=== PATIENT | male | born 1955 | race Caucasian/White ===

== ENCOUNTER 2016-06-05 10:55 | Inpatient (IN) | payer OTHER ==
[~2016-06-05] VITALS: Ht 180.3 cm; Wt 94.8 kg
--- NOTE | ~2016-06-05 | HC ---
[facility] [place] [address] [place] [address] CONSULTATION Name: JET MONTALVO Room #: 201-P [facility] IN M.R.#: [id number] Admission: 06/05/16 Attend Phys: Leland Barrett MD, [facility] Dis[facility]: Date of : 55 Report #: [id number] THIS REPORT FOR: //name// CC: Leland Ragland MD DATE OF SERVICE: 06/05/2016 The patient was admitted through the hospitalist after being seen in Dr. Ragland's office. HISTORY OF PRESENT ILLNESS: The patient states he has been having chest pain, cough and shortness of breath for about one year now. It has been drastically increased after he fell two months ago. The patient had been following up a chest x-ray which was done, I believe on the and following up in Dr. Ragland's office. The patient was then admitted through the hospitalist at [facility] for chest pain, cough, shortness of breath and pleural effusion with loculation. PAST MEDICAL HISTORY: COPD, basal cell carcinoma ear and forehead. PAST SURGICAL HISTORY: Arthroscopic knee bilaterally twice on the right. Previously has had lumbar fusion L3 through S1 and basal cell cancer removal. SOCIAL HISTORY: The patient is single, lives with his girlfriend, does have 3 children. He smokes a pack a day x 40 years, he quit 1 month ago and does not drink alcohol, denies any use of illicit drugs. FAMILY HISTORY: Mother is alive and 88 years old with a history of coronary artery disease and diabetes. Father is in his 70s of lung cancer and prostatic cancer. ALLERGIES: No known drug allergies. HOME MEDICATIONS: Prednisone, meloxicam, albuterol, guaifenesin and codeine. REVIEW OF SYSTEMS: A 12-point review of systems completed. GENERAL: The patient denies any fatigue, does have some difficulty sleeping secondary to frequent cough. HEENT: Denies any headache, vertigo or hearing loss. RESPIRATORY: Does complain of shortness of breath, dyspnea on exertion, orthopnea. Denies wheeze. Does complain of frequent cough producing phlegm. CARDIOVASCULAR: Denies chest pain, jaw pain, arm pain or murmur. INTEGUMENTARY: Denies rashes, psoriasis or eczema. [address] [address] CONSULTATION Name: JET MONTALVO Mikki Room #: 201-P [facility] IN .R.#: [id number] Admission: 06/05/16 Attend Phys: Leland Barrett MD, FAAF Discharge: Date of : 55 Report #: [id number] ENDOCRINE: Denies cold feet, he said he has night sweats. Denies any lack of concentration. GASTROINTESTINAL: Denies nausea, vomiting, diarrhea or constipation. GENITOURINARY: Denies any urinary frequency, hematuria or dysuria. NEUROLOGIC: Denies any seizures or neuropathy. PSYCHIATRIC: Denies any hallucination, depression or anxiety MUSCULOSKELETAL: Denies any swelling or stiffness. He does complain of some joint pain, bilateral knees when ambulating up and down stairs. Denies any leg claudication, IMMUNOLOGIC: Denies any lupus, rheumatoid arthritis or celiac disease. PHYSICAL EXAMINATION: VITAL SIGNS: Blood pressure is 150/97, pulse of 100, respirations 16, temperature is 36.8, O2 sat of 94% on room air. GENERAL: Well-developed, well-nourished, has normal speech and mentation. HEENT: Eyes are PERRLA. He is normocephalic. Gaze appearing conjugate in all positions. No evidence of nystagmus. CARDIOVASCULAR: Shows regular rate and rhythm, S1, S2, without murmur, gallops or thrills. No carotid bruits noted. LUNGS: Show decreased lung sounds to right upper and lower lobes. Left lung upper and lower lobes show fine crackles, did not note any wheezes or stridor. ABDOMEN: Soft, nontender. Bowel sounds are present in all 4 quadrants. SKIN: Shows normal color. Normal turgor. MUSCULOSKELETAL: A 5/5 strength in all muscle groups in upper and lower extremities. NEUROLOGIC: Cranial nerves 2-12 are examined and intact. The patient is alert and oriented x 3. LABORATORY DATA: Sodium is 134, potassium is 4.0, chloride is 100, CO2 is 23, BUN is 9, creatinine is 0.8. White blood cells 10.5, hemoglobin is 13.9, hematocrit is 41.0 and platelets are 291. CT scan done shows loculated effusion to the right chest wall. ASSESSMENT: 1. Right-sided loculated pleural effusion. 2. Chronic obstructive pulmonary disease. 3. Tobacco abuse. PLAN: We will order preoperative EKG, CBC, type and screen, n.p.o. midnight and a consent form for tomorrow's bronchoscopy, right video-assisted thoracoscopy with possible right thoracotomy and decortication. <ELECTRONICALLY SIGNED> By: CHACORTA Perla 06/15/16 1423 1607 39 CHACORTA Perla /nt
--- NOTE | ~2016-06-05 | O ---
[facility] [place] [address] OPERATIVE REPORT Name: JET MONTALVO Mikki Room #: 201-P [facility] IN M.R.#: [id number] Admission: 06/05/16 Attend Phys: Leland Barrett MD, [facility] Discharge: 06/15/16 Date of : 55 Report #: [id number] THIS REPORT FOR: //name// CC: Leland Barrett Jenaro Pablo Barraza DATE OF SERVICE: 06/07/2016 PREOPERATIVE DIAGNOSIS: Empyema, right side. POSTOPERATIVE DIAGNOSIS: Loculated right pleural effusion with fibrothorax/empyema. OPERATION: Bronchoscopy, right thoracotomy with decortication. SURGEON: Rory Covarrubias MD ANESTHESIA: General. INDICATIONS: The patient is a 60-year-old with a loculated pleural effusion. The patient presents with progressive debilitation, shortness of breath and severe cough. Chest x-ray and CT scan showed the loculated effusion and trapped lung. FINDINGS AND TECHNIQUE: After general anesthesia was established, flexible diagnostic bronchoscopy was performed. There were some secretion seen in the right lower lobe, but no endobronchial lesions were noted. Double lumen endotracheal tube was placed and the patient was positioned with right side up. Exposure was obtained through typical video-assisted thoracoscopy ports, but it was clear that the lung was trapped and that more aggressive approach would be needed, therefore exposure was brought into a posterolateral thoracotomy and the chest was entered through appropriate interspace. The loculated effusion was drained, but the lung was covered by a thick peel that prevented reexpansion. This peel was removed with combination of sharp and blunt dissection. This was a tedious dissection as this was a very tenacious layer. Nevertheless, there was a plane between the peel and lung and we were able to decorticate the right upper and middle and lower lobes. When the decortication was felt to be optimal, chest was irrigated with copious amounts of warm saline and then 4 chest tubes were placed to drain the anterior, lateral, posterior, and inferior pleural surfaces. Chest was then closed in the [facility] [address] [place] [address] OPERATIVE REPORT Name: JET MONTALVO Room #: 201-P [facility] IN M.R.#: [id number] Admission: 06/05/16 Attend Phys: Leland Barrett MD, FAAF Discharge: 06/15/16 Date of : 55 Report #: [id number] usual fashion. The patient was taken to the recovery area in good condition having tolerated the procedure well. <ELECTRONICALLY SIGNED> By: Rory Covarrubias MD 06/28/162009 1620 1703 Rory Covarrubias MD /nt
--- NOTE | ~2016-06-05 | EKG ---
[address] [place] [address] ELECTROCARDIOGRAM REPORT Name: KATIAJET Kaye Room #: 242-P [facility] IN M.R.#: [id number] Admission: 06/05/16 Attend Phys: Leland Barrett MD, FAAF Discharge: Date of : 55 Report #: [id number] THIS REPORT FOR: //name// [facility] Test Date: 2016-06-06 Test Time: 16:18:45 Pat Name: JET MONTALVO Department: Room: [facility] Gender: M Psychodramatist: Cristina CHACON : 1955 Requested By: Vadim Irby Order Number: [id number] MD: Ethan Lindsay Measurements Intervals Nelson Rate: 102 P: 67 OK: 219 QRS: 46 QRSD: 98 T: 72 QT: 337 QTc: 439 Interpretive Statements Sinus tachycardia Prolonged OK interval No previous ECG available for comparison Electronically Signed On 06-07-2016 17:47:41 BUILDING PRINCIPAL by Ethan Lindsay [email or web address] <ELECTRONICALLY SIGNED> By: Ethan Lindsay MD, [facility] 06/07/16 1747 1618 1618 Ethan Lindsay MD, FACC /EPI
--- NOTE | ~2016-06-05 | CNG ---
[facility] [address] [place] [address] CYTO-NONGYN REPORT PROCEDURE Name: ABRAHAM MONTALVO Room #: 308-P ADM IN M.R.#: [id number] Admission: 06/05/16 Date of : 55 Discharge: Report #: [id number] Path Case #: [id number] CYTOPATHOLOGY REPORT COLLECTION DATE: 06/05/2016 RECEIVED DATE: 06/05/2016 SUBMITTING PHYS: Dr. Quincy Ragland OTHER PHYS: Dr. Jenaro Barraza CLINICAL HISTORY: Pleural effusion. SPECIMEN(S) RECEIVED: A.Pleural fluid * * * * * * * * * * * * FINAL DIAGNOSIS: A. Pleural fluid: - No malignant cells identified. Paucicellular specimen with rare mesothelial cells and scattered inflammatory cells, including occasional eosinophils, present in a background of amorphous and fibrin debris. COMMENT: The inflammatory cells and fibrin debris may be a component of blood and peripheral blood elements. Clinical and radiographic correlation is recommended. (CLW; 06/06/16) PATHOLOGIST: Olivia Vaz M.D. REPORT ELECTRONICALLY SIGNED BY: Olivia Vaz M.D. DATE/TIME: 06/06/2016 12:05 * * * * * * * * * * * * GROSS PATHOLOGY: A. Pleural fluid: The specimen is submitted unfixed, labeled "Abraham Montalvo". Received by the Cytology Department is 15 mL of cloudy red fluid. One ThinPrep slide and a cell block were prepared. (clt 2.20.2017) CORD TIRE BUILDER(S): CRYS Mejia(ASCP)IAC INITIAL CPT CODE(S): A; 77113, 40566 [facility] [address], [place] [address] [facility] [address] [place] [address] CYTO-NONGYN REPORT PROCEDURE Name: ABRAHAM MONTALVO Room #: 308-P ADM IN M.R.#: [id number] Admission: 06/05/16 Date of : 55 Discharge: Report #: [id number] Path Case #: [id number] Technical services performed by [facility] at [address] [place] [address], [address], [place] [address]. [address], [address] [place] [address] PHONE: [phone] DIRECTOR: Jack Tee M.D. * * * END OF REPORT * * *
--- NOTE | ~2016-06-05 | H ---
[facility] [place] [address] HISTORY AND PHYSICAL Name: JET MONTALVO Room #: 201-P [facility] IN M.R.#: [id number] Admission: 06/05/16 Attend Phys: Leland Barrett [facility], [facility] Dis[facility]: Date of : 55 Report #: [id number] THIS REPORT FOR: //name// CC: Leland Ragland MD DATE OF SERVICE: 06/05/2016 CHIEF COMPLAINT: Chest pain, cough and shortness of breath. HISTORY OF PRESENT ILLNESS: The patient is a 60-year-old male who was referred for admission from Dr. Ragland's office secondary to persistent pleural effusion. The patient apparently fell on his left side on 03/31/2016. He had x-rays at that time, which were unremarkable. The patient was seen by Dr. Ragland last week on the for moderate loculated right pleural effusion. The patient stated that he has chest pain when he coughs and also when takes a deep breath. He has had cough with clear sputum. No history of any fever or chills. He has lost around 10 pounds over the last 30 days with dieting. PAST MEDICAL HISTORY: Significant for COPD. Has about 67-insq-fowf of smoking. No history of alcohol abuse or illicit drug abuse. He has a history of basal cell carcinoma involving his ear and his head. History of fall in 03/2016. He has had fractures in his back. He has been treated for presumed pneumonia and bronchitis in the past. He has had arthroscopic knee surgery and back surgery. ALLERGIES: No known drug allergy. HOME MEDICATIONS: Includes Ventolin. SOCIAL HISTORY: Stopped smoking in March, used to smoke a pack a day. No history of alcohol abuse or illicit drug abuse. FAMILY HISTORY: Notable for lung cancer in the father. History of hypertension and diabetes. REVIEW OF SYSTEMS: CONSTITUTIONAL: He has lost around 10 pounds on purpose. No fever or chills. EYES: No change in vision. THROAT: Denies any sore throat. CARDIOVASCULAR: No chest pain, dizziness or palpitation. RESPIRATORY: As above. GASTROINTESTINAL: No nausea or vomiting. GENITOURINARY: No dysuria or hematuria. [facility] [address] [place] [address] HISTORY AND PHYSICAL Name: JET MONTALVO Mikki Room #: 201-P [facility] IN [facility]#: [id number] Admission: 06/05/16 Attend Phys: Leland Barrett MD, FAAF Discharge: Date of : 55 Report #: [id number] NEUROLOGIC: No focal numbness or weakness of the extremities. PSYCHIATRIC: No anxiety or depression. A 12-point review of system is negative, other than the positive and negative dictated in the history of present illness and the review of system. PHYSICAL EXAMINATION: VITAL SIGNS: Blood pressure is 150/97, heart rate of 100 per minute, afebrile. GENERAL: The patient is awake and alert, not in acute respiratory distress. EYES: Pupils equal and reactive to light. Nonicteric conjunctivae. THROAT: Appears normal. NECK: Supple. No JVD, no bruit, no lymphadenopathy. CARDIOVASCULAR SYSTEM: S1, S2. Negative S3. No murmur. CHEST: Bilateral air entry present. Reduced breath sounds on the right base. ABDOMEN: Soft. Bowel sounds present. No mass, no organomegaly, no tenderness. PERIPHERY: No pedal edema. No calf tenderness. Dorsalis pedis 1+. NEUROLOGIC: No gross motor or sensory deficit. LABORATORIES: No labs available. ASSESSMENT AND PLAN: 1. Right-sided loculated pleural effusion. We will obtain baseline labs and we are going to obtain the CT of the chest with contrast. Pulmonary, Dr. Ragland has been consulted. Anticipate the patient will need further workup including thoracentesis or possible cardiothoracic surgery consult. 2. Tobaccoism. The patient has stopped smoking since March. 3. History of chronic obstructive pulmonary disease. He will be placed on DuoNeb. 4. Deep venous thrombosis prophylaxis. He will be on sequential compression device on the leg for deep venous thrombosis prophylaxis. Treatment plan has been explained to the patient in detail. <ELECTRONICALLY SIGNED> By: Jose Alberto Ayon MD 06/13/16 1427 1311 1434 Jose Alberto Ayon MD /nt
--- NOTE | ~2016-06-05 | S ---
[facility] [place] [address] [place] [address] SURGICAL PATH RPT PROCEDURE Name: ABRAHAM MONTALVO Room #: 242-P ADM IN M.R.#: [id number] Admission: 06/05/16 Date of : 55 Discharge: Report #: [id number] Path Case #: [id number] PATHOLOGY REPORT COLLECTION DATE: 06/07/2016 RECEIVED DATE: 06/07/2016 SUBMITTING PHYS: Dr. Rory Covarrubias OTHER PHYS: Dr. Jasbir Barrett SPECIMEN(S) RECEIVED: A.Right pleural exudate * * * * * * * * * * * * FINAL DIAGNOSIS: "Right pleural exudate", pleural resection: - Pleura with fibrosis, fibroblastic proliferation, acute and chronic inflammation including scattered eosinophils, and reactive mesothelial hyperplasia. COMMENT: No malignancy is seen. Clinical and radiographic correlation is recommended. (CLW:macie; d/t: 06/08/2016) PATHOLOGIST: Olivia Vaz M.D. REPORT ELECTRONICALLY SIGNED BY: Olivia Vaz M.D. DATE/TIME: 06/08/2016 16:31 * * * * * * * * * * * * GROSS PATHOLOGY: The specimen is received in formalin labeled "Abraham Montalvo, right pleural exudate". Received are multiple segments of pink-can rubbery tissue measuring 9.5 x 7.6 x 2.1 cm in aggregate dimensions. The specimen is submitted representatively in cassette A1. (CAA; 06/07/2016) CLINICAL HISTORY: Right pleural effusion INITIAL CPT CODE(S): 45229 Professional services performed by [facility] at [facility] [address] [place] [address] SURGICAL PATH RPT PROCEDURE Name: ABRAHAM MONTALVO Room #: 242-P ADM IN M.R.#: [id number] Admission: 06/05/16 Date of : 55 Discharge: Report #: [id number] Path Case #: [id number] [address], [place] [address] Technical services performed by [facility] at [address] [place] [address], [facility] [address] [address]. [facility] [address] [place] [address] PHONE: [phone] DIRECTOR: Jack Tee M.D. * * * END OF REPORT * * *
[~2016-06-05 10:55] MED LIST: CYCLOBENZAPRINE5 MG PO; FLEXERIL PO; GUAIATUSSIN AC L5 ML PO; GUAIFENESIN-CO120 ML PO; IBUPROFEN 800800 MG PO; LEVAQUIN 500 M500 M2 PO; MOBIC15 MG PO; PREDNISONE50 MG PO; PROMETHAZINE DM; SYMBICORT80 MCG/4.1 INH; VENTOLIN HFA 1818 GM INH
[2016-06-05 13:42] LABS: HEMOGLOBIN 13.9 gm/dL (14.0-18.0); MCH 30.1 pg (26.0-34.0); MCHC 33.8 g/dL (28.0-37.0); MCV 89.2 fL (80.0-100.0); RBC 4.6 mil/uL (4.50-6.00); RDW 13.2 % (10.5-14.5); WBC 10.5 thou/uL (4.0-11.0)
[2016-06-05 13:53] LABS: CREATININE 0.8 mg/dL (0.6-1.3)
[2016-06-05 13:57] LABS: APTT 27.8 Seconds (24.5-32.8); PROTIME 10.6 Seconds (9.3-11.4)
[2016-06-05 17:01] LABS: BF NUCLEATED CELLS 2324; BF RBC 231925
[2016-06-05 17:04] LABS: CLARITY TURBID; COLOR RED; TOTAL VOLUME 60 mL
[2016-06-05 17:51] LABS: MANUAL DIFF YES
[2016-06-05 21:06] LABS: BODY FLUID ALBUMIN 2.7 g/dL (()); BODY FLUID GLUCOSE 69 mg/dL (()); BODY FLUID LDH 567 IU/L (()); BODY FLUID PROTEIN 5.2 g/dL (())
[2016-06-06 04:33] LABS: BF NEUTROPHILS 4
[2016-06-06 04:34] LABS: BF MACROPHAGE 19
[2016-06-06 05:41] LABS: ABSOLUTE NEUTROPHILS 7.6 thou/uL (1.4-8.2); BASOPHILS 0.2 % (0.0-2.0); HEMOGLOBIN 14.3 gm/dL (14.0-18.0); LYMPHOCYTES 13.2 % (24.0-44.0); MCH 30.4 pg (26.0-34.0); MCHC 34.1 g/dL (28.0-37.0); MONOCYTES 2.4 % (1.0-8.0); PLATELET COUNT 414 thou/uL (150-400); POLYS 84.2 % (36.0-66.0); RBC 4.72 mil/uL (4.50-6.00)
[2016-06-06 05:45] LABS: MANUAL DIFF NO
[2016-06-06 05:56] LABS: CALCIUM 8.8 mg/dL (8.5-10.1); POTASSIUM 3.9 mmol/L (3.5-5.1)
[2016-06-08 05:04] LABS: HEMATOCRIT 37.5 % (42.0-52.0); MCH 29.8 pg (26.0-34.0); MCHC 32.6 g/dL (28.0-37.0); MCV 91.4 fL (80.0-100.0); RBC 4.1 mil/uL (4.50-6.00); RDW 13.6 % (10.5-14.5)
[2016-06-08 05:09] LABS: HEMOGLOBIN 12.2 gm/dL (14.0-18.0)
[2016-06-08 05:13] LABS: CALCIUM 8.2 mg/dL (8.5-10.1); CREATININE 0.9 mg/dL (0.6-1.3); POTASSIUM 5.1 mmol/L (3.5-5.1)
[2016-06-13 04:07] LABS: HEMATOCRIT 44.1 % (42.0-52.0); HEMOGLOBIN 14.5 gm/dL (14.0-18.0); MCH 29.8 pg (26.0-34.0); MCHC 32.8 g/dL (28.0-37.0); MCV 90.8 fL (80.0-100.0); RBC 4.86 mil/uL (4.50-6.00); RDW 13.3 % (10.5-14.5); WBC 16.2 thou/uL (4.0-11.0)
[2016-06-13 04:09] LABS: CALCIUM 8.5 mg/dL (8.5-10.1); CREATININE 0.8 mg/dL (0.6-1.3); POTASSIUM 4.4 mmol/L (3.5-5.1)
[2016-06-15] MEDS ORDERED: AUGMENTIN 875-1 EACH PO (13:34)
== END 2016-06-15 17:56 | disposition home or self-care (01) | DRG 163 ==
LOC: 3N 10:55 → 2N 12:06 → TBA 06-07 08:59 → ICU 06-07 14:21 → 2N 06-09 11:31
PROVIDERS: Internal Medicine; Internal Medicine Pulmonary Disease; Physician Assistant; Surgery Vascular Surgery
PROC: BB4BZZZ Ultrasonography of Pleura (ICD-10-PCS; principal; 2016-06-07)
PROC: 0W993ZX Drainage of Right Pleural Cavity, Percutaneous Approach, Diagnostic (ICD-10-PCS; principal; 2016-06-07)
PROC: 0B5N0ZZ Destruction of Right Pleura, Open Approach (ICD-10-PCS; principal; 2016-06-07)
PROC: 0BD Respiratory System, Extraction (ICD-10-PCS; principal; 2016-06-07)
DX: J94.1 Fibrothorax (principal); J18.9 Pneumonia, unspecified organism; J44.1 Chronic obstructive pulmonary disease with (acute) exacerbation; J90 Pleural effusion, not elsewhere classified; Z96.653 Presence of artificial knee joint, bilateral; Z87.891 Personal history of nicotine dependence; Z82.49 Family history of ischemic heart disease and other diseases of the circulatory system; Z83.3 Family history of diabetes mellitus; Z80.1 Family history of malignant neoplasm of trachea, bronchus and lung
CPT/HCPCS: 10081; 10096; 10196; 47405; 50010; 50101; 50386; 50417; 50455; 50497; 51301; 51717; 52265; 54118; 56524; 56525; 56526; 56527; 56531; 62110; 62900; 64047; 65002; 65020; 65090; 65105; 70005

== ENCOUNTER → 2016-07-11 | Outpatient (CLI) | payer OTHER ==
[~2016-07-11] MED LIST changes: +AUGMENTIN 875-1 EACH PO
== END ==
LOC: RAD 09:49
DX: J90 Pleural effusion, not elsewhere classified (principal); R91.8 Other nonspecific abnormal finding of lung field

== ENCOUNTER → 2016-08-04 | Outpatient (CLI) | payer OTHER | LOC: RAD 10:11 | DX: J90 Pleural effusion, not elsewhere classified (principal) ==

== ENCOUNTER → 2016-09-14 | Outpatient (CLI) | payer OTHER | LOC: RAD 08-11 10:42 | DX: J90 Pleural effusion, not elsewhere classified (principal) ==

== ENCOUNTER → 2016-10-26 | Outpatient (CLI) | payer OTHER | LOC: RAD 10:04 | DX: J90 Pleural effusion, not elsewhere classified (principal); R05 Cough ==

== ENCOUNTER → 2017-03-01 | Outpatient (CLI) | payer OTHER ==
[~2017-03-01] MED LIST changes: +NORCO 5-325 TA1 EACH PO; +NORCO 7.5-3251 EACH PO; +PREDNISONE 20 M20 MG PO; +VALIUM5 MG PO
== END ==
LOC: MRI 07:51
DX: M47.896 Other spondylosis, lumbar region (principal); I77.811 Abdominal aortic ectasia

== ENCOUNTER 2017-03-11 07:47 | Emergency (ER) | payer OTHER ==
[~2017-03-11] VITALS: Ht 180.3 cm; Wt 105.7 kg
[~2017-03-11 07:47] MED LIST changes: +NABUMETONE 750750 M1 PO
[2017-03-11] MEDS ORDERED: NORCO 7.5-3251 EACH PO (08:35)
== END 2017-03-11 08:57 | disposition home or self-care (01) ==
LOC: ER 07:47
DX: M54.42 Lumbago with sciatica, left side (principal); F17.210 Nicotine dependence, cigarettes, uncomplicated

== ENCOUNTER → 2017-03-12 | Outpatient (CLI) | payer OTHER ==
[~2017-03-12] VITALS: Ht 180.3 cm; Wt 103.4 kg
--- NOTE | ~2017-03-12 | HPC ---
[facility] [place] [address] PAIN MANAGEMENT CONSULTATION Name: JET MONTALVO Mikki Room #: REG [facility] Kimberly#: [id number] Admission: 03/12/17 Attend Phys: Jesse Houston DO Discharge: Date of : 55 Report #: [id number] THIS REPORT FOR: //name// CC: Leland Houston HISTORY OF PRESENT ILLNESS: The patient is a 61-year-old gentleman seen in consultation on 03/05/2017, diagnosed with symptomatic lumbar radiculopathy secondary to spinal stenosis. We sought authorization for epidural injection under fluoroscopy. This was granted and he was brought in today for the procedure. He was seen in the ER last night, for exacerbation of back pain. He notes he had an IM injection of medications, which had helped some, but notes currently pain has recurred, it is 6-7 on a VAS. Pain is in the low back, bilateral buttocks and legs, feels like his legs are about to give out. He denies bowel or bladder continence changes. Pain is exacerbated with any axial loading. Classic neurogenic claudication symptoms. PHYSICAL EXAMINATION: Otherwise unchanged. ASSESSMENT: Symptomatic lumbar radiculopathy secondary to spinal stenosis. PROCEDURE: Lumbar epidural injection with fluoroscopy. PROCEDURE NOTE: After both written and informed consent to include risk of spinal cord damage, increased pain, weakness and dural puncture, the patient was taken to the fluoroscopy suite, placed in the prone position. After sterile prep and drape, a skin wheal with lidocaine was raised. A 22-gauge epidural Tuohy needle was inserted in the midline at L4-L5 with good loss to resistance. Negative aspiration for cerebrospinal fluid or blood was noted. Then 1 mL of Omnipaque under biplanar fluoroscopy showed good spread within the epidural space. This was followed with 80 mg of triamcinolone plus 1 mL of 1.5% preservative-free Xylocaine, 0.5 mL Xylocaine was then injected to flush the needle; it was removed. The patient was monitored for an appropriate period of time and discharged in good and stable condition. The patient was discharged in good and stable condition. Told to follow up with Dr. Barrett if pain continues to be problematic, present to the ER if he has acute exacerbation of pain. We expect neither of these. I would like to see him back in about 3 weeks for evaluation. If pain is incrementally better, we can consider repeating the injection. If he gets no significant relief, he may benefit from neurosurgical consultation. Thanks for allowing me to participate in the patient's care. <ELECTRONICALLY SIGNED> By: Jesse Houston DO 03/19/17 0759 1534 0048 Jesse Houston DO /nt
[2017-03-12 14:02] VITALS: BP 115/74
== END | disposition home or self-care (01) ==
LOC: PAIN 13:17
DX: M48.061 Spinal stenosis, lumbar region without neurogenic claudication (principal); Z79.891 Long term (current) use of opiate analgesic

== ENCOUNTER → 2017-03-26 | Outpatient (CLI) | payer OTHER ==
[~2017-03-26] VITALS: Ht 180.3 cm; Wt 103.0 kg
[~2017-03-26] MED LIST changes: +HYDROCODONE PO
--- NOTE | ~2017-03-26 | HPC ---
[facility] [place] [place] [address] PAIN MANAGEMENT CONSULTATION Name: KATIAJET Room #: REG [facility] Kimberly#: [id number] Admission: 03/26/17 Attend Phys: Jesse Houston DO Discharge: Date of : 55 Report #: [id number] THIS REPORT FOR: //name// CC: Leland Houston The patient is a 61-year-old gentleman, prior seen in the pain clinic 03/12/2017, diagnosed with symptomatic lumbar radiculopathy, given epidural injection at L4-L5. He returns to pain clinic today noting the injection afforded good relief, he said 3-4 episodes of pain radiating into the left leg in the past week significantly improved, function is improved overall. He rates the pain is still a 5 on VAS, he notes pain does interfere with function. PHYSICAL EXAMINATION: Shows a 61-year-old gentleman, BMI is 31.7 kg/m2. Positive straight leg raise on the left. Left hip flexion and lower extremity extension strength is diminished compared to the right. Vital signs are stable. Again, notes 50% relief following the last injection, ongoing relief remains, but pain continues to be problematic. ASSESSMENT: Symptomatic lumbar radiculopathy. RECOMMENDATION: Continue nabumetone 750 b.i.d. He is not taking hydrocodone anymore and uses rare Valium for spasm. PROCEDURE: Lumbar epidural injection under fluoroscopy. PROCEDURE NOTE: After both written and informed consent to include risk of spinal cord damage, increased pain, weakness and dural puncture, the patient was taken to the fluoroscopy suite, placed in the prone position. After sterile prep and drape, a skin wheal with lidocaine was raised. A 22-gauge epidural Tuohy needle was inserted in the midline at L4-L5 with good loss to resistance. Negative aspiration for cerebrospinal fluid or blood was noted. Then 1 mL of Omnipaque under biplanar fluoroscopy showed good spread within the epidural space. This was followed with 80 mg of triamcinolone plus 1 mL of 1.5% preservative-free Xylocaine, 0.5 mL Xylocaine was then injected to flush the needle; it was removed. The patient was monitored for an appropriate period of time and discharged in good and stable condition. The patient was discharged in good and stable condition. Follow up in 4 weeks for reevaluation, cancel if doing well. By: 1808 2211 Jesse Houston DO /marily
[2017-03-26 13:10] VITALS: BP 141/87
== END | disposition home or self-care (01) ==
LOC: PAIN 06:51
DX: M54.16 Radiculopathy, lumbar region (principal); Z79.891 Long term (current) use of opiate analgesic

== ENCOUNTER → 2017-05-03 | Outpatient (CLI) | payer OTHER ==
[~2017-05-03] VITALS: Ht 180.3 cm; Wt 104.1 kg
[~2017-05-03] MED LIST changes: +IBUPROFEN 200200 M1 PO; +MS CONTIN15 MG PO; +NEURONTIN 300300 M1 PO; +PERCOCET 10-321 EACH PO; +TRAMADOL 50 MG50 MG PO; +TRI-BUFFERED A325 M1 PO
--- NOTE | ~2017-05-03 | HPC ---
[facility] [place] [address] PAIN MANAGEMENT CONSULTATION Name: JET MONTALVO Mikki Room #: REG ELIESER Harris#: [id number] Admission: 05/03/17 Attend Phys: Jesse Houston DO Discharge: Date of : 55 Report #: [id number] THIS REPORT FOR: //name// CC: Leland Houston The patient is a 61-year-old gentleman, initially seen in consultation 03/05/2017, with request of Dr. Barrett for evaluation of pain, low back, left greater than right leg with very tight stenosis at L5-S1. The patient had failed conservative therapy. MRI from 03/01/2017, noted L5-S1 to have a large central disk narrowing of the canal to 5 mm, neural foraminal encroachment, greater on the left than the right. L4-L5 noted a focal component more in the right than the left. The patient had 2 epidural injections, 03/12/2017 and again 03/26/2017. Both injections afforded very good incremental relief, but pain has recurred, now essentially back to baseline. The patient notes he has episodic spasm down the left leg to the foot. Rates pain a 3 on a VAS at present, but it is exacerbated with activity up to a 6-9. He denies specific antecedent trauma. He notes pain interferes with function, exacerbated with walking and standing, stairs becoming problematic. The patient takes nabumetone 750 b.i.d. and diazepam from Dr. Barrett. He denies bowel or bladder continence changes. PHYSICAL EXAMINATION: Shows a 61-year-old gentleman, BMI is 32 kg/m2. Blood pressure 154/85, pulse 80, respirations 20. Rises from chair using armrest, moderately antalgic gait, positive straight leg raise on the left at 30 degrees. Left leg has diminished hip flexion, lower extremity extension and plantar flexion strength compared to the right, perhaps 3/5 versus 4/5. The patient prior had a decompressive laminectomy in 1983, for primarily low back pain. Lumbar range of motion is adequate with only modest decreased range of motion to flexion. Some diffuse lumbar tenderness, no discrete trigger points are noted. ASSESSMENT: Symptomatic lumbar radiculopathy by clinical exam and history, Lumbar radiculopaathy status post decompressive laminectomy in the distant past. RECOMMENDATION: After a long discussion with the patient today, we have elected to repeat epidural injection under fluoroscopy today. Given; however, symptoms have recurred after the first 2 injections, I will refer him to [facility] for consideration for more definitive intervention [place] [address] PAIN MANAGEMENT CONSULTATION Name: JET MONTALVO Room #: ROSITA Harris#: [id number] Admission: 05/03/17 Attend Phys: Jesse Houston DO Discharge: Date of : 55 Report #: [id number] Thank you for allowing me to participate in the patient's care. PROCEDURE: Lumbar epidural injection under fluoroscopy. PROCEDURE NOTE: After both written and informed consent to include risk of spinal cord damage, increased pain, weakness and dural puncture, the patient was taken to the fluoroscopy suite, placed in the prone position. After sterile prep and drape, a skin wheal with lidocaine was raised. A 22-gauge epidural Tuohy needle was inserted in the midline at L5-S1 with good loss to resistance. Negative aspiration for cerebrospinal fluid or blood was noted. Then 1 mL of Omnipaque under biplanar fluoroscopy showed good spread within the epidural space. This was followed with 80 mg of triamcinolone plus 1 mL of 1.5% preservative-free Xylocaine, 0.5 mL Xylocaine was then injected to flush the needle; it was removed. The patient was monitored for an appropriate period of time and discharged in good and stable condition. <ELECTRONICALLY SIGNED> By: Jesse Houston DO 05/04/17 0757 1223 1746 Jesse Houston DO /nt
[2017-05-03 09:37] VITALS: BP 154/85
== END | disposition home or self-care (01) ==
LOC: PAIN 07:01
DX: M54.16 Radiculopathy, lumbar region (principal); G89.29 Other chronic pain; Z98.890 Other specified postprocedural states

== ENCOUNTER → 2017-09-17 | Outpatient (CLI) | payer OTHER ==
[~2017-09-17] MED LIST changes: -IBUPROFEN 200200 M1 PO; -MS CONTIN15 MG PO; -NEURONTIN 300300 M1 PO; -PERCOCET 10-321 EACH PO; -TRAMADOL 50 MG50 MG PO; -TRI-BUFFERED A325 M1 PO
== END ==
LOC: RAD 09:38
DX: R91.1 Solitary pulmonary nodule (principal)

== ENCOUNTER 2017-09-27 20:24 | Emergency (ER) | payer OTHER ==
[~2017-09-27] VITALS: Ht 180.3 cm; Wt 106.6 kg
[2017-09-27] MEDS ORDERED: NORCO 5-325 TA1 EACH PO (20:57)
== END 2017-09-27 21:45 | disposition home or self-care (01) ==
LOC: ER 20:24
DX: S20.211A Contusion of right front wall of thorax, initial encounter (principal); F17.210 Nicotine dependence, cigarettes, uncomplicated; W01.0XXA Fall on same level from slipping, tripping and stumbling without subsequent striking against object, initial encounter; Y93.89 Activity, other specified; Y92.89 Other specified places as the place of occurrence of the external cause; Y99.8 Other external cause status

== ENCOUNTER 2018-02-24 07:22 | Emergency (ER) | payer OTHER ==
[~2018-02-24] VITALS: Ht 180.3 cm; Wt 104.3 kg
[~2018-02-24 07:22] MED LIST changes: +IBUPROFEN 200200 M1 PO; +MS CONTIN15 MG PO; +NEURONTIN 300300 M1 PO; +PERCOCET 10-321 EACH PO; +TRAMADOL 50 MG50 MG PO; +TRI-BUFFERED A325 M1 PO
[2018-02-24] MEDS ORDERED: VALIUM5 MG PO (09:39)
[2018-02-24] MEDS ORDERED: MOBIC15 MG PO (09:39)
[2018-02-24] MEDS ORDERED: NORCO 5-325 TA1 EACH PO (09:39)
[2018-02-24 09:54] VITALS: BP 140/78
== END 2018-02-24 09:56 | disposition home or self-care (01) ==
LOC: ER 07:22
DX: S16.1XXA Strain of muscle, fascia and tendon at neck level, initial encounter (principal); F17.210 Nicotine dependence, cigarettes, uncomplicated; J44.9 Chronic obstructive pulmonary disease, unspecified; I10 Essential (primary) hypertension; Z85.828 Personal history of other malignant neoplasm of skin; X58.XXXA Exposure to other specified factors, initial encounter; Y92.89 Other specified places as the place of occurrence of the external cause; Y93.89 Activity, other specified; Y99.8 Other external cause status

== ENCOUNTER 2018-09-28 08:09 | Emergency (ER) | payer OTHER ==
[~2018-09-28] VITALS: Ht 180.3 cm; Wt 102.5 kg
[2018-09-28] MEDS ORDERED: NORCO 5-325 TA1 EAC1 PO (09:15)
[2018-09-28] MEDS ORDERED: NAPROSYN500 MG PO (09:15)
[2018-09-28 09:47] VITALS: BP 161/86
== END 2018-09-28 09:48 | disposition home or self-care (01) ==
LOC: ER 08:09
DX: S83.92XA Sprain of unspecified site of left knee, initial encounter (principal); M25.462 Effusion, left knee; M17.12 Unilateral primary osteoarthritis, left knee; J44.9 Chronic obstructive pulmonary disease, unspecified; B19.20 Unspecified viral hepatitis C without hepatic coma; I10 Essential (primary) hypertension; F17.210 Nicotine dependence, cigarettes, uncomplicated; Z85.828 Personal history of other malignant neoplasm of skin; X50.9XXA Other and unspecified overexertion or strenuous movements or postures, initial encounter; Y93.89 Activity, other specified; Y92.096 Garden or yard of other non-institutional residence as the place of occurrence of the external cause; Y99.8 Other external cause status

== ENCOUNTER 2018-12-04 09:44 | Inpatient (IN) | payer OTHER ==
[2018-11-25 08:36] LABS: HEMATOCRIT 44.2 % (42.0-52.0); HEMOGLOBIN 14.7 gm/dL (14.0-18.0); MCH 29.9 pg (26.0-34.0); MCHC 33.3 g/dL (28.0-37.0); MCV 89.8 fL (80.0-100.0); RBC 4.93 mil/uL (4.50-6.00); RDW 14.1 % (10.5-14.5); WBC 11.7 thou/uL (4.0-11.0)
[2018-11-25 08:37] LABS: URINE BILIRUBIN NEGATIVE (Negative); URINE BLOOD NEGATIVE (Negative); URINE CLARITY CLEAR; URINE COLOR YELLOW; URINE GLUCOSE-RANDOM* NEGATIVE (Negative); URINE KETONES NEGATIVE (Negative); URINE LEUKOCYTES-REFLEX NEGATIVE (Negative); URINE NITRITE-REFLEX NEGATIVE (Negative); URINE PROTEIN (DIPSTICK) NEGATIVE (Negative); URINE SPECIFIC GRAVITY <= 1.005 (1.005-1.035); URINE UROBILINOGEN 0.2 E.U./dl (0.2-1.0)
[2018-11-25 08:44] LABS: ALBUMIN 3.6 g/dL (3.4-5.0); CALCIUM 9.3 mg/dL (8.5-10.1); CREATININE 0.9 mg/dL (0.7-1.3)
[2018-11-25 08:46] LABS: PROTIME 9.9 Seconds (9.3-11.4)
--- NOTE | 2018-11-26 08:10 | EKG ---
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 GARCIA : 1955 Requested By: Niraj Woodruff Order Number: [id number] MD: Ethan Lindsay Measurements Intervals [place] Rate: 89 P: 66 ID: 206 QRS: 53 QRSD: 102 T: 71 QT: 355 QTc: 432 Interpretive Statements Sinus rhythm with first-degree AV block Otherwise no significant abnormality Compared to ECG 11/21/2017 08:55:10 No significant changes Electronically Signed On 11-26-2018 8:10:41 CDT by Ethan Lindsay [email or web address] <ELECTRONICALLY SIGNED> By: Ethan Lindsay MD, [facility] 11/26/18 0810 836 5 Ethan Lindsay MD, FACC /EPI
[~2018-12-04] VITALS: Ht 180.3 cm; Wt 99.8 kg
--- NOTE | ~2018-12-04 | O ---
[facility] [address] [address] OPERATIVE REPORT Name: JET MONTALVO Room #: 457-P REG [facility]..#: [id number] Admission: 12/04/18 Attend Phys: Niraj Woodruff MD Discharge: Date of : 55 Report #: [id number] THIS REPORT FOR: //name// CC: Leland Woodruff DATE OF SERVICE: 12/04/2018 PREOPERATIVE DIAGNOSIS: Left knee osteoarthritis. POSTOPERATIVE DIAGNOSIS: Left knee osteoarthritis. PROCEDURE: Left total knee arthroplasty using Navio robotic assistance. SURGEON: Niraj Woodruff MD MASTER CARPENTER: Louise Paulson PA-C INDICATIONS FOR MASTER CARPENTER: Throughout the case, extensive retraction and manipulation of the knee was required. This was afforded to me by my clinical physician assistant. ANESTHESIA: LMA with an adductor canal block. IMPLANTS: Bae and Nephew size 7 Journey II BCS Oxinium femur, a size 6 tibia, size 9 highly constrained polyethylene and a size 35 patella. TOURNIQUET TIME: 72 minutes. ESTIMATED BLOOD LOSS: 25 mL. COMPLICATIONS: None. SPECIMENS: None. CONDITION UPON LEAVING THE OPERATING ROOM: Stable. INDICATIONS FOR PROCEDURE: The patient is a 63-year-old gentleman with left knee osteoarthritis who failed conservative measures for this and after discussion with him, he elected for left total knee arthroplasty. DESCRIPTION OF PROCEDURE: Risks, benefits, alternatives, complications were discussed in detail with the patient including but not limited to risk of anesthesia, risk of damage to nerves, arteries, blood vessels, risk for infection, bleeding, risk for continued knee pain and need for reoperation. Informed consent was obtained from the patient. Left knee was appropriately marked in the preoperative holding area. IV Ancef was given for preoperative [address] [address] OPERATIVE REPORT Name: JET MONTALVO Room #: 457[facility]P [facility] [id number] Admission: 12/04/18 Attend Phys: Niraj Woodruff MD Discharge: Date of : 55 Report #: [id number] antibiotics. He was brought to the operating room and placed in supine position on the operating room table. LMA anesthesia was induced without complication. Tourniquet was placed on the left thigh. Left lower extremity was prepped and draped in normal sterile fashion. Timeout was performed properly identifying the patient and procedure as well as the instrumentation and implants. All in the operating room were in agreement. Left lower extremity was exsanguinated. Tourniquet was inflated. Tourniquet time was 72 minutes. Standard midline approach to knee was made with 10 blade through the skin. Dissection was taken down sharply to the fascia and deep flaps were developed medially and laterally. Fresh 10 blade was used to make a medial parapatellar arthrotomy and the knee was inspected. There was severe tricompartmental osteoarthritis. ACL and PCL were removed sharply. Reference pins were placed in the femur and the tibia and the knee was digitally mapped using the [employer] system. Intraoperative plan was made and we sized the size 7 femur and a size 6 tibia and a 10 spacer. After acceptance of the intraoperative plan, the distal femoral cut was made with the Navio casey. The distal femoral cutting block was then pinned in place and the distal femoral cuts were made. Attention was turned to the tibia. The remainder of the menisci removed with Bovie cautery. Tibial resection guide was pinned in place using the Navio for placement of the guide. After this, flexion and extension gaps were checked and found to be somewhat tight medially and extension. Medial osteophytes were removed from the medial plateau and a limited medial release was performed using the pie crust technique. This balanced the medial side well with the lateral side being somewhat more lax than the medial side. It was felt we could make up for this with a constrained implant if necessary. Tibia was sized, found to be a size 6. The size 6 tibial trial was placed, pinned and punched. A size 7 femoral trial was placed and the box cut was made. This was then trialed with a size 9 polyethylene. Knee was taken through range of motion, found to be stable, found to have a millimeter of laxity medially throughout range of motion with up to 3 mm of laxity laterally throughout range of motion. This was then trialed with a highly constrained polyethylene and found to have good balance laterally, medially both digitally as well as manually. A 9 mm was taken off the posterior surface of the patella and a size 35 patellar trial button was placed. Knee was then taken through range of motion, found to be stable, found to have good patellar tracking. After this, trial components were removed. Bony ends were thoroughly irrigated with normal saline. A final size 6 tibia, size 7 Journey II BCS Oxinium femur and a size 35 patella were cemented in place using standard cementation techniques. While the cement cured, a periarticular injection consisting of morphine, ropivacaine, epinephrine and Toradol was placed around the knee joint capsule. After the cement cured, tourniquet was deflated. Hemostasis was obtained with Bovie cautery. Final size 9 highly constrained polyethylene was placed. A gram of vancomycin was placed deep in the joint. The fascia was closed with 0 Vicryl, skin was closed with 2-0 Vicryl, 3-0 Monocryl. Dermabond [address] [address] OPERATIVE REPORT Name: KATIAJET Kaye Room #: 457-P REG [facility].#: [id number] Admission: 12/04/18 Attend Phys: Niraj Woodruff MD Discharge: Date of : 55 Report #: [id number] and a RAPHAEL dressing was applied. The patient tolerated this procedure well and went to recovery room under care of anesthesia postoperatively. By: 1704 1830 Niraj Woodruff MD /nt
[~2018-12-04 09:44] MED LIST changes: +NAPROSYN500 MG PO; +NORCO 5-325 TA1 EAC1 PO
[2018-12-04 10:28] VITALS: BP 134/79
[2018-12-04 17:27] VITALS: BP 143/74
[2018-12-04 19:01] VITALS: BP 129/77
[2018-12-04 20:01] VITALS: BP 122/75
[2018-12-04 21:01] VITALS: BP 134/84
--- NOTE | 2018-12-05 04:01 | NUR ---
ASSUMED CARE OF PT AT 1900HRS. PT AOX4 AND LETS KEEDS BE KNOWN. PT IS POST OP DAY 1. SURGICAL DRESSING IS INTACT. PT REPORTED SOME PAIN AND WAS TREATED WITH PRN PAIN MEDS. NO N/V THIS SHIFT AND PT IS TOLERATING A REGULAR DIET. PT WAS ABLE TO VOID. NO S/S OF ACUTE DISTRESS. WILL CONTINUE TO MONITOR.
[2018-12-05 05:45] LABS: HEMATOCRIT 37.9 % (42.0-52.0); HEMOGLOBIN 12.7 gm/dL (14.0-18.0); MCH 30.2 pg (26.0-34.0); MCHC 33.4 g/dL (28.0-37.0); MCV 90.4 fL (80.0-100.0); RBC 4.2 mil/uL (4.50-6.00); RDW 14.2 % (10.5-14.5); WBC 17.2 thou/uL (4.0-11.0)
[2018-12-05 07:21] VITALS: BP 131/70
[2018-12-05 14:46] VITALS: BP 132/74
--- NOTE | 2018-12-05 14:53 | NUR ---
PT ADMITTED RELATED TO LEFT TKR. CM REVIEWED CHART AND SPOKE WITH CARE TEAM. CM MET WITH PT AND SPOUSE AT BEDSIDE THIS DAY. PT IS A&O X4. CM ROLE INTRODUCED. PT INDICATED HE LIVES IN A HOUSE WITH HIS SPOUSE WITH 2 STEPS TO ENTER AND NO STEPS INSIDE. PT HAS A FWW FOR USE UPON DC. PT INDICATED HE IS SET UP WITH OP PT HERE AT [facility]. PT ANTICIPATES DISCHARGING HOME TOMORROW. CM TO FOLLOW SHOULD ANY DC NEEDS ARISE.
[2018-12-05 19:07] VITALS: BP 147/86
--- NOTE | 2018-12-05 20:26 | NUR ---
PT A&OX4, VSS, PAIN IN LEFT LEG. PT IS RECEIVING PAIN MEDICATION TO MANAGE PAIN AND ICE PACKS. FLUIDS RAN ORDERED. PATIENT WALKED WITH PHYSICAL THERPAY TODAY. AT BEDSIDE. PATIENT USED URINAL. SENSATION IN LEG, SKIN COLOR APPROPRIATE, WARM TO TOUCH, LEG ELEVATED. WILL CONTINUE TO MONITOR.
--- NOTE | 2018-12-06 02:31 | NUR ---
ASSUMED CARE OF PT AT 1900HRS. PT AOX4 AND LETS NEEDS BE KNOWN. PT COMPLAINED ABOUT PAIN AND WAS TREATED WITH PRN MEDICATION SEVERAL TIMES. PAIN WAS CONTROLLED AND PT WAS ABLE TO SLEEP PART OF THE SHIFT. NO S/S OF ACUTE DISTRESS. WILL CONTINUE TO MONITOR.
[2018-12-06 04:38] LABS: HEMATOCRIT 36.8 % (42.0-52.0); HEMOGLOBIN 12.2 gm/dL (14.0-18.0); MCH 30.1 pg (26.0-34.0); MCHC 33.2 g/dL (28.0-37.0); MCV 90.5 fL (80.0-100.0); RBC 4.07 mil/uL (4.50-6.00); RDW 14.2 % (10.5-14.5); WBC 11.1 thou/uL (4.0-11.0)
[2018-12-06 08:00] VITALS: BP 166/89
[2018-12-06] MEDS ORDERED: NEURONTIN 300300 M1 PO (14:40)
[2018-12-06] MEDS ORDERED: ASPIR 8181 MG PO (14:40)
--- NOTE | 2018-12-06 15:40 | NUR ---
CARE TEAM INDICATED THAT PT IS MEDICALLY STABLE TO DISCHARGE HOME THIS DAY. PT IS ESTABLISHED WITH OP PT AND HAS A FWW. NO OTHER CM INTERVENTION INDICATED. CASE CLOSED.
[2018-12-06 15:58] VITALS: BP 166/89
--- NOTE | 2018-12-06 16:37 | NUR ---
PATIENT DOING WELL TODAY. TOLERATING DIET. VOIDING WITHOUT DIFFICULTY AND IN ADEQUATE AMOUNTS. PAIN NOT CONTROLLED WELL WITH MORPHINE ALTERNATED WITH HYDROCODONE. NOTIFIED DR. HILL AT NOON. MOLDER BENCH JAKE VISITED AT 1400 AND DISCHARGE ORDERS WRITTEN. INCREASED HYDROCODONE TO 1-2 TABS Q4H PRN PAIN FOR AT HOME. MEDICATED WITH MORPHINE PRIOR TO DISCHARGE. MOLDER BENCH CHANGED RAPHAEL DRESSING TO LT KNEE IT WAS SATURATED WITH SANGUINOUS FLUID. SUTURES INTACT, WITH INCISION WELL APPROXIMATED. SLIGHT OOZING NOTED. DISCHARGE INSTRUCTIONS GIVEN. DISMISSED IN STABLE CONDITION.
== END 2018-12-06 16:15 | disposition home or self-care (01) | DRG 470 ==
LOC: OR 09:44 → EDSTATUS 10:02 → OR 10:04 → TBA 12:38 → PRE 15:55 → SBH 16:30 → 4W 17:00 → OR 17:00 → SBH 17:00 → 4W 18:04 → OR 18:04 → ENTRNSPT 12-06 16:05 → 4W 12-06 16:15
PROVIDERS: ADMIT Orthopaedic Surgery
DX: M17.12 Unilateral primary osteoarthritis, left knee (principal)
CPT/HCPCS: 10047; 50010; 50101; 50415; 50954; 51130; 51225; 53000; 53078; 54118; 55372; 56527; 56528; 57095; 57103; 57110; 57115; 57127; 57180; 62110; 62900; 64039; 64043; 70005

== ENCOUNTER 2018-12-09 12:29 | Day surgery (SDC) | payer OTHER ==
[~2018-12-09] VITALS: Ht 177.8 cm; Wt 103.0 kg
[~2018-12-09 12:29] MED LIST changes: +ASPIR 8181 MG PO
[2018-12-09 13:01] VITALS: BP 141/68
[2018-12-09] MEDS ORDERED: NORCO 5-325 TA1 EAC1 PO (13:39)
[2018-12-09] MEDS ORDERED: MS CONTIN30 MG PO (13:39)
[2018-12-09 15:56] VITALS: BP 141/68
--- NOTE | 2018-12-11 12:23 | O ---
[facility] [place] [address] OPERATIVE REPORT Name: JET MONTALVO Room #: DEP [facility]#: [id number] Admission: 12/09/18 Attend Phys: Niraj Woodruff MD Discharge: 12/09/18 Date of : 55 Report #: [id number] THIS REPORT FOR: //name// CC: Leland Woodruff DATE OF SERVICE: 12/09/2018 PREOPERATIVE DIAGNOSIS: Postoperative left knee hematoma, status post left total knee arthroplasty. POSTOPERATIVE DIAGNOSIS: Postoperative left knee hematoma, status post left total knee arthroplasty. PROCEDURE: Evacuation of left knee hematoma. SURGEON: Niraj Woodruff MD. HUMAN RESOURCES REPRESENTATIVE: Louise Paulson PA-C. ANESTHESIA: LMA. FINDINGS: Subcutaneous hematoma with intact capsular closure. ESTIMATED BLOOD LOSS: 10 mL. COMPLICATIONS: None. SPECIMENS: None. CONDITION UPON LEAVING THE OPERATING ROOM: Stable. INDICATIONS FOR PROCEDURE: The patient is 4 days status post left total knee arthroplasty, presented to the office with drainage and has RAPHAEL dressing. Upon removal of it, there was noted to be dark sanguinous ____ incision. It was felt that he had an exam consistent with a hematoma and after discussion with him, he elected for evacuation of left knee hematoma. DESCRIPTION OF PROCEDURE: Risks, benefits, alternatives, complications were discussed in detail with the patient including but not limited to risk of anesthesia, risk of damage to nerves, arteries, blood vessels, risk for infection, bleeding, continued bleeding and need for reoperation. Informed consent was obtained from the patient. Left knee was appropriately marked in the preoperative holding area. IV Ancef was given for preoperative antibiotics. He was brought to the operating room and placed in supine position on operating room table. LMA anesthesia was induced without complication. Left lower [address] [address] OPERATIVE REPORT Name: MAGYJET DE DIOS Room #: DEP [facility] Kimberly#: [id number] Admission: 12/09/18 Attend Phys: Niraj Woodruff MD Discharge: 12/09/18 Date of : 55 Report #: [id number] extremity was prepped and draped in normal sterile fashion. Timeout was performed properly identifying the patient and procedure as well as the instrumentation. All in the operating room were in agreement. The previous incision was then opened with a 10 blade and upon entering the adipose layer, there was noted to be a large hematoma that was drained. The fascial closure was intact. The skin and subcutaneous tissues were then thoroughly irrigated with normal saline. Hemostasis was obtained with Bovie cautery. A Hemovac drain was placed. Skin was closed with 2-0 Vicryl and skin staple. RAPHAEL dressing was applied. The patient tolerated this procedure well and went to the recovery room under the care of anesthesia postoperatively. <ELECTRONICALLY SIGNED> By: Niraj Woodruff MD 12/11/18 1223 1600 1653 Niraj Woodruff MD /marily
== END 2018-12-09 17:27 | disposition home or self-care (01) ==
LOC: OR 12:29 → TBA 12:30 → OR 17:27
DX: M96.840 Postprocedural hematoma of a musculoskeletal structure following a musculoskeletal system procedure (principal); J43.9 Emphysema, unspecified; Z87.891 Personal history of nicotine dependence; Z85.828 Personal history of other malignant neoplasm of skin; Z98.890 Other specified postprocedural states; Z96.652 Presence of left artificial knee joint; Z86.19 Personal history of other infectious and parasitic diseases; Z79.899 Other long term (current) drug therapy
CPT/HCPCS: 50101; 50415; 50445; 50954; 51412; 53078; 56528; 57095; 57103; 57116; 70005

== ENCOUNTER 2019-04-07 14:25 | Emergency (ER) | payer OTHER ==
[~2019-04-07] VITALS: Ht 180.3 cm; Wt 104.3 kg
[~2019-04-07 14:25] MED LIST changes: +MS CONTIN30 MG PO
[2019-04-07 15:53] LABS: HEMOGLOBIN 13.3 gm/dL (14.0-18.0); MCHC 33.1 g/dL (28.0-37.0); MCV 87.6 fL (80.0-100.0); PLATELET COUNT 355 thou/uL (150-400); RBC 4.57 mil/uL (4.50-6.00); RDW 15.1 % (10.5-14.5); WBC 9.5 thou/uL (4.0-11.0)
[2019-04-07 15:57] LABS: ANION GAP 9 mmol/L (7-16); BUN 9 mg/dL (7-18); CALCIUM 9.3 mg/dL (8.5-10.1); CHLORIDE 100 mmol/L (98-107); CO2 25 mmol/L (21-32); GLUCOSE 107 mg/dL (74-106); POTASSIUM 4.5 mmol/L (3.5-5.1); SODIUM 134 mmol/L (136-145)
[2019-04-07 16:07] LABS: ALBUMIN 3.5 g/dL (3.4-5.0); SGOT 33 U/L (15-37); SGPT 46 U/L (30-65); TOTAL BILIRUBIN 0.5 mg/dL (<0.1-1.0); TOTAL PROTEIN 7.9 g/dL (6.4-8.2); TROPONIN-I <0.06 ng/mL (<0.06)
[2019-04-07 16:45] LABS: ABSOLUTE NEUTROPHILS 5.1 thou/uL (1.4-8.2); PLATELET ESTIMATE NORMAL
[2019-04-07] MEDS ORDERED: PROAIR HFA8.5 GM INH (17:40)
[2019-04-07] MEDS ORDERED: PREDNISONE 20 M20 MG PO (17:40)
[2019-04-07] MEDS ORDERED: DOXYCYCLINE 10100 MG PO (17:40)
[2019-04-07 17:57] VITALS: BP 133/74
--- NOTE | 2019-04-11 14:50 | EKG ---
[address] [address] ELECTROCARDIOGRAM REPORT Name: JET MONTALVO [facility] [id number] Admission: 04/07/19 Attend Phys: Discharge: 04/07/19 Date of : 55 Report #: [id number] THIS REPORT FOR: //name// [facility] ED Test Date: 2019-04-07 Test Time: 14:30:55 Pat Name: JET MONTALVO Department: Room: Gender: M It Support Technician: FRANCES : 1955 Requested By: Lexy Park Order Number: [id number] MD: Michael Galeas Measurements Intervals [place] Rate: 95 P: 71 [place]: 195 QRS: 70 QRSD: 105 T: 76 QT: 343 QTc: 431 Interpretive Statements Sinus tachycardia Atrial premature complex Probable left atrial enlargement Anteroseptal infarct, age indeterminate Baseline wander in lead(s) V1,V3 Compared to ECG 11/25/2018 08:36:02 Atrial premature complex(es) now present Myocardial infarct finding now present Sinus rhythm no longer present Electronically Signed On 04-11-2019 14:50:24 POULTRY HATCHERY SUPERVISOR by Michael Galeas [email or web address] <ELECTRONICALLY SIGNED> By: Michael Galeas MD 04/11/19 1450 1430 1430 Michael Galeas MD /EPI
== END 2019-04-07 17:57 | disposition home or self-care (01) ==
LOC: ER 14:25
PROVIDERS: Emergency Medicine
DX: J18.9 Pneumonia, unspecified organism (principal); F17.210 Nicotine dependence, cigarettes, uncomplicated; Z86.19 Personal history of other infectious and parasitic diseases; Z85.828 Personal history of other malignant neoplasm of skin; Z86.14 Personal history of Methicillin resistant Staphylococcus aureus infection

== ENCOUNTER 2019-09-08 13:52 | Emergency (ER) | payer OTHER ==
[~2019-09-08] VITALS: Ht 180.3 cm; Wt 105.2 kg
[~2019-09-08 13:52] MED LIST changes: +DOXYCYCLINE 10100 MG PO; +PROAIR HFA8.5 GM INH
[2019-09-08 13:54] VITALS: BP 151/88
[2019-09-08] MEDS ORDERED: LIDODERM1 EACH TOP (14:44)
[2019-09-08] MEDS ORDERED: PREDNISONE 20 M20 MG PO (14:44)
[2019-09-08] MEDS ORDERED: NORFLEX100 MG PO (14:44)
== END 2019-09-08 14:52 | disposition home or self-care (01) ==
LOC: ER 13:52
DX: M43.6 Torticollis (principal); F17.210 Nicotine dependence, cigarettes, uncomplicated

== ENCOUNTER 2019-09-15 10:40 | Emergency (ER) | payer OTHER ==
[~2019-09-15] VITALS: Ht 180.3 cm; Wt 106.6 kg
[~2019-09-15 10:40] MED LIST changes: +LIDODERM1 EACH TOP; +NORFLEX100 MG PO
[2019-09-15 11:33] LABS: ABSOLUTE NEUTROPHILS 11.9 thou/uL (1.4-8.2); BASOPHILS 0.6 % (0.0-2.0); EOSINOPHILS 0.2 % (0.0-3.0); HEMATOCRIT 44.8 % (42.0-52.0); HEMOGLOBIN 15.1 gm/dL (14.0-18.0); MCH 30.5 pg (26.0-34.0); MCHC 33.6 g/dL (28.0-37.0); MCV 90.7 fL (80.0-100.0); MONOCYTES 6.8 % (1.0-8.0); PLATELET COUNT 349 thou/uL (150-400); POLYS 68.4 % (36.0-66.0); RBC 4.94 mil/uL (4.50-6.00); WBC 17.4 thou/uL (4.0-11.0)
[2019-09-15 11:42] LABS: CREATININE 1.1 mg/dL (0.7-1.3); POTASSIUM 4.7 mmol/L (3.5-5.1)
[2019-09-15] MEDS ORDERED: MELOXICAM15 MG PO (14:44)
[2019-09-15] MEDS ORDERED: ZANAFLEX2 M1 PO (14:44)
[2019-09-15] MEDS ORDERED: ULTRAM 50MG TAB50 MG PO (14:44)
[2019-09-15 14:49] VITALS: BP 158/85
[2019-09-15] MEDS ORDERED: SENNA-DOCUSATE1 EAC1 PO (15:04)
[2019-09-15] MEDS ORDERED: NORCO 5-325 TA1 EAC1 PO (15:04)
== END 2019-09-15 14:49 | disposition home or self-care (01) ==
LOC: ER 10:40
PROVIDERS: Emergency Medicine
DX: S16.1XXA Strain of muscle, fascia and tendon at neck level, initial encounter (principal); F17.210 Nicotine dependence, cigarettes, uncomplicated; Z79.899 Other long term (current) drug therapy; Z98.890 Other specified postprocedural states; X50.1XXA Overexertion from prolonged static or awkward postures, initial encounter; Y93.89 Activity, other specified; Y92.89 Other specified places as the place of occurrence of the external cause; Y99.9 Unspecified external cause status

== ENCOUNTER → 2019-09-25 | Outpatient (CLI) | payer OTHER ==
[~2019-09-25] MED LIST changes: +MELOXICAM15 MG PO; +SENNA-DOCUSATE1 EAC1 PO; +ULTRAM 50MG TAB50 MG PO; +ZANAFLEX2 M1 PO
== END ==
LOC: ULTRA 10:34
PROVIDERS: ATTEND Family Medicine
DX: I65.23 Occlusion and stenosis of bilateral carotid arteries (principal)

== ENCOUNTER → 2020-03-29 | Outpatient (CLI) | payer OTHER | LOC: ULTRA 10:45 | PROVIDERS: ATTEND Family Medicine | DX: I65.23 Occlusion and stenosis of bilateral carotid arteries (principal) ==

== ENCOUNTER 2021-03-21 09:37 | Emergency (ER) | payer OTHER ==
[~2021-03-21] VITALS: Ht 180.3 cm; Wt 106.6 kg
[2021-03-21 10:31] LABS: ABSOLUTE NEUTROPHILS 4.3 thou/uL (1.4-8.2); BASOPHILS 1.4 % (0.0-2.0); EOSINOPHILS 3.3 % (0.0-3.0); HEMATOCRIT 40.3 % (42.0-52.0); HEMOGLOBIN 13.4 gm/dL (14.0-18.0); MCH 30.7 pg (26.0-34.0); MCHC 33.2 g/dL (28.0-37.0); MCV 92.4 fL (80.0-100.0); MONOCYTES 11.1 % (1.0-8.0); PLATELET COUNT 290 thou/uL (150-400); POLYS 51.2 % (36.0-66.0); RBC 4.36 mil/uL (4.50-6.00); RDW 13.1 % (10.5-14.5); WBC 8.3 thou/uL (4.0-11.0)
[2021-03-21 10:49] LABS: CALCIUM 8.8 mg/dL (8.5-10.1); CREATININE 0.9 mg/dL (0.7-1.3); POTASSIUM 3.9 mmol/L (3.5-5.1)
[2021-03-21 10:59] LABS: ALBUMIN 3.2 g/dL (3.4-5.0); TOTAL BILIRUBIN 0.5 mg/dL (0.2-1.0); TOTAL PROTEIN 8.6 g/dL (6.4-8.2)
[2021-03-21] MEDS ORDERED: TESSALON PERLE100 MG PO (13:08)
[2021-03-21] MEDS ORDERED: AZITHROMYCIN 2250 MG PO (13:08)
[2021-03-21] MEDS ORDERED: MUCUS RELIEF600 M1 PO (13:08)
[2021-03-21 13:50] VITALS: BP 137/83
--- NOTE | 2021-03-22 08:04 | EKG ---
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: ASAF : 1955 Requested By: Dex Garcia Order Number: [id number] MD: Ethan Lindsay Measurements Intervals [place] Rate: 101 P: 56 CT: 209 QRS: 55 QRSD: 104 T: 64 QT: 355 QTc: 461 Interpretive Statements Sinus tachycardia Atrial premature complex Borderline prolonged CT interval Baseline wander in lead(s) V2 Compared to ECG 04/07/2019 14:30:55 Myocardial infarct finding no longer present Electronically Signed On 03-22-2021 8:04:03 DOOR TO DOOR SALES REPRESENTATIVE by Ethan Lindsay [email or web address] <ELECTRONICALLY SIGNED> By: Ethan Lindsay MD, [facility] 03/22/21 0804 1037 1037 Ethan Lindsay MD, FACC /EPI
== END 2021-03-21 13:51 | disposition home or self-care (01) ==
LOC: ER 09:37
PROVIDERS: Emergency Medicine
DX: J40 Bronchitis, not specified as acute or chronic (principal); Z20.822 Contact with and (suspected) exposure to COVID-19; E66.9 Obesity, unspecified; F17.210 Nicotine dependence, cigarettes, uncomplicated; Z79.899 Other long term (current) drug therapy; Z98.890 Other specified postprocedural states

== ENCOUNTER 2021-04-01 15:14 | Inpatient (IN) | payer OTHER ==
[~2021-04-01] VITALS: Ht 180.3 cm; Wt 102.7 kg
[~2021-04-01 15:14] MED LIST changes: +AZITHROMYCIN 2250 MG PO; +MUCUS RELIEF600 M1 PO; +TESSALON PERLE100 MG PO
[2021-04-01 15:27] VITALS: BP 134/83
[2021-04-01 16:01] LABS: ABSOLUTE NEUTROPHILS 5.7 thou/uL (1.4-8.2); BASOPHILS 1.2 % (0.0-2.0); EOSINOPHILS 1.5 % (0.0-3.0); HEMATOCRIT 38.8 % (42.0-52.0); HEMOGLOBIN 13.1 gm/dL (14.0-18.0); LYMPHOCYTES 31.9 % (24.0-44.0); MCH 31.3 pg (26.0-34.0); MCHC 33.9 g/dL (28.0-37.0); MCV 92.2 fL (80.0-100.0); MONOCYTES 11.2 % (1.0-8.0); PLATELET COUNT 327 thou/uL (150-400); POLYS 54.2 % (36.0-66.0); RBC 4.21 mil/uL (4.50-6.00); RDW 13.3 % (10.5-14.5); WBC 10.6 thou/uL (4.0-11.0)
[2021-04-01 16:50] LABS: CALCIUM 8.8 mg/dL (8.5-10.1); POTASSIUM 4.1 mmol/L (3.5-5.1)
[2021-04-01 16:56] LABS: TOTAL BILIRUBIN 0.7 mg/dL (0.2-1.0); TOTAL PROTEIN 8.4 g/dL (6.4-8.2)
[2021-04-01 17:19] LABS: URINE BLOOD NEGATIVE (Negative); URINE CLARITY CLEAR; URINE COLOR YELLOW; URINE GLUCOSE-RANDOM* NEGATIVE (Negative); URINE KETONES NEGATIVE (Negative); URINE LEUKOCYTES-REFLEX NEGATIVE (Negative); URINE NITRITE-REFLEX NEGATIVE (Negative); URINE PROTEIN (DIPSTICK) NEGATIVE (Negative); URINE SPECIFIC GRAVITY 1.015 (1.005-1.035)
[2021-04-01 17:24] LABS: ICTOTEST (BILI CONFIRMATORY) Negative (Negative); URINE BILIRUBIN NEGATIVE (Negative)
[2021-04-01 19:51] LABS: APTT 26.2 Seconds (24.5-32.8); INR 0.97; PROTIME 10.6 Seconds (10.5-12.1)
[2021-04-01 20:55] LABS: BE(vivo) -2.3 mmol/L (-2 to +3); HCO3 20.9 mmol/L (22.0-26.0); PCO2 31.6 mmHg (35.0-45.0); PO2 76.5 mmHg (80.0-100.0); pH 7.439 (7.360-7.450); sO2 95.9 % (92.0-98.0)
[2021-04-01 22:57] VITALS: BP 141/76
--- NOTE | 2021-04-02 03:50 | NUR ---
04/01/212229 PATIENT ADMITTED TO UNIT FROM ER VIA STRETCHER. PATIENT IS AAOX4 AND FOLLOWS ALL COMMANDS AND PROMPTS. HE IS ABLE TO AMBULATE UNDER HIS OWN STRENGTH. HE IS ADMITTED WITH PORTAL VEIN THROMBOSIS AND HAS A HEPARIN DRIP INFUSING. PATIENT STATES THAT HE HAS PAIN OF 8/10. ALL O FHIS BITALS ARE STABLE. HE IS COMPLIANT WITH ALL TREATMENT. DENIES ANY DIFFICULTY BREATHING. ALL SAFETY PRECAUTIONS ARE IN PLACE. NSR ON THE MONITOR. NO DISTRESS NOTED. [address] MILLER OF PATIENT PAIN LEVEL. NEW ORDERS RECEIVED. WILL CONTINUE TO MONITOR FOR CHANGES IN STATUS.
[2021-04-02 04:40] VITALS: BP 160/93
[2021-04-02 08:06] VITALS: BP 140/85
--- NOTE | 2021-04-02 10:51 | EKG ---
[address] [address] ELECTROCARDIOGRAM REPORT Name: JET MONTALVO Mikki Room #: 219-P ADM IN M.R.#: [id number] Admission: 04/01/21 Attend Phys: Leland Barrett MD, FAAF Discharge: Date of : 55 Report #: [id number] [facility] Test Date: 2021-04-02 Test Time: 07:39:03 Pat Name: JET MONTALVO Department: Room: 219 Gender: M Vector Control Specialist: : 1955 Requested By: Cheo Baird Order Number: [id number] MD: Benjamin De La Fuente Measurements Intervals [place] Rate: 84 P: 64 WI: 237 QRS: 52 QRSD: 106 T: 67 QT: 374 QTc: 443 Interpretive Statements Sinus rhythm Prolonged [place] interval Compared to ECG 04/01/2021 15:29:05 First degree AV block now present Sinus tachycardia no longer present Atrial premature complex(es) no longer present Intraventricular conduction delay no longer present Myocardial infarct finding no longer present Electronically Signed On 04-02-2021 10:51:16 GROUND CONTROL APPROACH TECHNICIAN by Benjamin De La Fuente [email or web address] <ELECTRONICALLY SIGNED> By: Benjamin De La Fuente MD 04/02/21 1051 0739 0739 Benjamin De La Fuente MD /EPI
--- NOTE | 2021-04-02 10:58 | EKG ---
[address] [address] ELECTROCARDIOGRAM REPORT Name: JET MONTALVO Mikki Room #: 219-P ADM IN M.R.#: [id number] Admission: 04/01/21 Attend Phys: Leland Barrett MD, FAAF Discharge: Date of : 55 Report #: [id number] [facility] ED Test Date: 2021-04-01 Test Time: 15:29:05 Pat Name: JET MONTALVO Department: Room: 219 Gender: M Contracts Attorney: SADE : 1955 Requested By: Yarelis Cochran Order Number: [id number] MD: Benjamin De La Fuente Measurements Intervals [place] Rate: 113 P: 58 [place]: 192 QRS: 46 QRSD: 116 T: 57 QT: 312 QTc: 428 Interpretive Statements Sinus tachycardia Atrial premature complexes Probable left atrial enlargement Anteroseptal infarct, old Compared to ECG 03/21/2021 10:37:13 Intraventricular conduction delay now present Myocardial infarct finding now present Electronically Signed On 04-02-2021 10:58:43 HANDTOOLS REPAIRER by Benjamin De La Fuente [email or web address] <ELECTRONICALLY SIGNED> By: Benjamin De La Fuente MD 04/02/21 1058 1529 1529 Benjamin De La Fuente MD /JALYN
--- NOTE | 2021-04-02 11:00 | NUR ---
APTT RESULTS 41.4 - INCREASED DRIP TO 19.2ML/HR AND GAVE 3090 UNIT BOLUS OF HEPARIN.
[2021-04-02 12:11] VITALS: BP 161/78
[2021-04-02 16:16] VITALS: BP 149/70
[2021-04-02 17:51] LABS: % SATURATION 9 % (20-39); IRON 23 ug/dL (65-175); TIBC 258 ug/dL (250-450)
[2021-04-02 17:54] LABS: ALBUMIN 2.6 g/dL (3.4-5.0); CALCIUM 8.5 mg/dL (8.5-10.1); POTASSIUM 4.1 mmol/L (3.5-5.1); PROTIME 10.9 Seconds (10.5-12.1); TOTAL BILIRUBIN 0.4 mg/dL (0.2-1.0); TOTAL PROTEIN 7.8 g/dL (6.4-8.2)
--- NOTE | 2021-04-02 18:32 | NUR ---
PATIENT REMAINED ON HEPARIN THROUGHOUT THE SHIFT. APTT WAS DRAWN AND ADJUSTED APPROPRIATELY. NO BM TODAY. SPOUSE AT BEDSIDE THROUGHOUT THE AFTERNOON. THE ONLY COMPLAINTS THE PATIENT HAD WAS ABDOMINAL PAIN THAT WAS TREATED MEDICATION AND RELIEVED. PATIENT DENIED ANY OTHER COMPLIANTS.
[2021-04-02 20:15] VITALS: BP 118/79
--- NOTE | 2021-04-02 23:52 | NUR ---
PATIENT RESTINGIN HIS ROOM WATCHING TV. HEPARIN REMINS INFUSING. PATIENT STATES THAT HE IS NOT FEELING MUCH BETTER AND HIS STOMACH HAS HURT ALL DAY. STATES THAT HE HAS NOT HAD A BM TODAY BUT HE IS PASSING GAS. PATIENT IS AAOX4 AND IS CALM AND COOPERATIVE. SHOWS NO S/S OF RESPIRATORY DISTRESS. IS ABLE TO AMBULATE UNDER HIS OWN POWER. NO ACUTE CHANGES NOTED. ALL VSS. WILL CONTINUE TO MONITOR FOR CHANGES IN PATIENT STATUS.
[2021-04-03 01:20] LABS: ABSOLUTE NEUTROPHILS 3.6 thou/uL (1.4-8.2); BASOPHILS 1.4 % (0.0-2.0); EOSINOPHILS 3.2 % (0.0-3.0); HEMATOCRIT 37.4 % (42.0-52.0); HEMOGLOBIN 12.6 gm/dL (14.0-18.0); LYMPHOCYTES 36.5 % (24.0-44.0); MCH 30.9 pg (26.0-34.0); MCHC 33.6 g/dL (28.0-37.0); MCV 91.8 fL (80.0-100.0); MONOCYTES 12.5 % (1.0-8.0); PLATELET COUNT 275 thou/uL (150-400); POLYS 46.4 % (36.0-66.0); RBC 4.07 mil/uL (4.50-6.00); RDW 13.3 % (10.5-14.5); WBC 7.8 thou/uL (4.0-11.0)
[2021-04-03 01:31] LABS: CALCIUM 8.4 mg/dL (8.5-10.1); CREATININE 0.9 mg/dL (0.7-1.3)
[2021-04-03 04:45] VITALS: BP 134/87; BP 156/106
[2021-04-03 06:05] LABS: HAV IgM AB (ANTI-HAV IgM) Negative (Negative); HEPATITIS B SURFACE AG Negative (Negative)
[2021-04-03 08:00] VITALS: BP 106/20
--- NOTE | 2021-04-03 08:47 | NUR ---
APTT therapeutic at 50.7 after AM draw. No change made to heparin dose.
[2021-04-03 11:30] VITALS: BP 112/78
[2021-04-03 16:54] VITALS: BP 141/78
[2021-04-03 19:45] VITALS: BP 139/78
--- NOTE | 2021-04-04 04:09 | NUR ---
Assumed pt care at 1900. Pt is alert and oriented. No sign of distress noted. Pt is ambulatory. Assessment completed and documeted. Pain med administered upon request. No acute event through the night. Pt is NPO after midnight for an EGD. Heparin drip in place. No events through the night. Continue to monitor. No further needs at this time.
[2021-04-04 04:45] VITALS: BP 136/86
[2021-04-04 09:10] VITALS: BP 141/80
--- NOTE | 2021-04-04 10:21 | NUR ---
Pt off unit @ 1000 for EGD.
--- NOTE | 2021-04-04 15:26 | NUR ---
PT ADMITTED FOR PORTEAL VEIN THROMBOSIS. CHART REVIEWED AND DISCUSSED WITH CARE TEAM. THIS CM MET WITH PT THIS DAY. PTS AT SIDE. CM ROLE INTRODUCED. PT REPORTS NO CONCERNS REGARDING DISCHARGING HOME ONCE MEDICALLY STABLE. HE REPORTS HE LIVES AT HIS HOUSE WITH SPOUCE. HE HAS 6 STEPS TO GET INTO THE HOME AND 2 INSIDE THE HOME. HE REPORTS HE IS INDEPENDENT WITH ALL ADLS AND MOBILITY. HIS GOAL IS TO RETURN HOME WITH HIS SPOUSE ONCE MEDICALLY STABLE TO DC. PT HAD EGD TODAY. PT HAS THROMBOPHILIA AND AWAITING CONSULT FROM HEMATOLOGY. CM FOLLOWING.
[2021-04-04 16:17] VITALS: BP 104/68
[2021-04-04 20:15] VITALS: BP 115/67
[2021-04-05 03:09] LABS: HEMATOCRIT 37.1 % (42.0-52.0); MCH 30.1 pg (26.0-34.0); MCHC 32.4 g/dL (28.0-37.0); RBC 3.99 mil/uL (4.50-6.00); RDW 13.2 % (10.5-14.5); WBC 6.8 thou/uL (4.0-11.0)
[2021-04-05 03:11] LABS: CALCIUM 8.4 mg/dL (8.5-10.1); CREATININE 0.9 mg/dL (0.7-1.3); POTASSIUM 4.1 mmol/L (3.5-5.1)
[2021-04-05 04:45] VITALS: BP 115/79
--- NOTE | 2021-04-05 07:31 | HC ---
[facility] [place] [address] [place] [address] CONSULTATION Name: JET MONTALVO Room #: 219-P [facility] IN M.R.#: [id number] Admission: 04/01/21 Attend Phys: Leland Barrett MD, FAA Discharge: Date of : 55 Report #: [id number] THIS REPORT FOR: cc: Leland Barrett MD [facility] Leland Barrett MD [facility] Jan Crow MD ~ cc: Leland Barrett MD DATE OF SERVICE: 04/04/2021 REQUESTING PHYSICIAN: Dex Bettencourt M.D. REASON FOR CONSULTATION: Portal vein and SMV thrombosis and history of hepatitis C. HISTORY OF PRESENT ILLNESS: The patient is a 65-year-old male from the [place] area. He is to Therese Romano in medical records. The patient had been minding his own business, so to speak and then about 5 days prior to admission, which was on the 04/01 in retrospect does have some abdominal pain that did not go away. He also may have had some change associated with stool change and some gas. 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 Note that the portal vein had cavernous transformation, which can occur 6-20 days after clotting. There is also a history of hepatitis C, reportedly treated many years ago and thought to be WHITLEY. The patient prior to this had been feeling good without any testosterone usage, any significant weight change, any bowel habit changes, any infections that he is aware of or abdominal trauma. PAST HISTORY: Notable for the history of hepatitis C, treated with the interferon in the 80s. Also, history of left knee arthroscopy x 2 in 2000 and 2001, right knee arthroscopy in 2005, back surgeries, skin cancers that sounds like maybe basal cell or squamous cell from the ear and forehead, did have a right thoracotomy, decortication for right right-sided loculated pleural effusion, pneumothorax and empyema in the past, quit smoking in 2017. ALLERGIES: None known. SOCIAL HISTORY: Works at a company I think that is called [employer] used to be called [employer]. 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 Alcohol maybe several beverages per day. FAMILY HISTORY: No one else with clots, so I think he said mother had melanoma and also he has had low platelets. I am not sure if they were related. MEDICATIONS: At this time in the hospital currently include ipratropium, [facility] [address] [place] [address] CONSULTATION Name: JET MONTALVO Room #: 219-P [facility] IN [facility]#: [id number] Admission: 04/01/21 Attend Phys: Leland Barrett MD, FAAF Discharge: Date of : 55 Report #: [id number] albuterol, MiraLax, morphine sulfate IV, heparin per protocol. LABORATORY TESTS: Here are notable for creatinine of 0.9. Liver functions, AST 43, alkaline phosphatase 149, total protein 7.8, albumin 2.6. Iron was 23, TIBC 258%, iron saturation 9, CRP about 2 weeks ago was 9.5, which is elevated. Coags on admission included an INR of 1 and an aPTT of 26.2, white count recently 7.8, hemoglobin 12.6 and MCV 91.8, platelet count 275. Differential fairly unremarkable, antihepatitis A and B were normal. Hepatitis C and hepatitis C PCR is pending. Coronavirus is negative on admit. UA was negative for blood. IMAGING: Done this admit includes CTA chest PE protocol that showed no evidence of pulmonary emboli. There was some nonspecific pulmonary emboli, which I think were not much changed since 2019. There is also diffuse hepatic disease with hepatomegaly since similar to prior study. CT abdomen and pelvis shows a chronic granulomatous disease in the right lung. Mild fatty liver. Cavernous transformation of the portal vein within the rafaela hepatis. Thrombosis of the main portal vein and SMV present, age indeterminate. Surrounding edema such as that this could be an acute or subacute phase. No enlarged lymph nodes. No appendicitis or urinary tract abnormalities. The patient also had an ultrasound and Doppler that shows occlusive thrombus within main and right portal veins, some flow in the left portal vein. Normal appearance of the gallbladder. PHYSICAL EXAMINATION: GENERAL: The patient appears his stated age, his Melissa is present. VITAL SIGNS: Height is 5 feet 11 or 180.3 cm, weight is 228 pounds or 103.4 kilograms. He is afebrile with O2 sat of 94%, blood pressure 136/86, respirations 18, pulse 98. He is afebrile. MOOD: He is alert and pleasant, conversant. NEUROLOGIC: Speech and thought pattern are normal. LYMPH NODES: None enlarged in neck, supraclavicular, axillary or inguinal region. ABDOMEN: Slightly obese, slightly tender left side, a little bit on exam. No masses. EXTREMITIES: Without clubbing, cyanosis or edema. SKIN: Has no visible unusual ecchymosis or ulcerations noted. ASSESSMENT AND PLAN: 1. 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 I agree with anticoagulation with heparin. We are concerned about the iron deficiency. Being on heparin would interfere with checking of some of his blood tests such as the lupus anticoagulant panel. We will check cardiolipins and beta 2 glycoprotein antibodies as well as factor V Leiden, prothrombin gene mutation, may also consider checking PNH and ABIGAIL-2 mutations if this initial panel is negative. Since this appears to be [facility] [address] [place] [address] CONSULTATION Name: JET MONTALVO Mikki Room #: 219-P [facility] IN M.R.#: [id number] Admission: 04/01/21 Attend Phys: Leland Barrett MD, FAAF Discharge: Date of : 55 Report #: [id number] unprovoked at this time, unless we find his liver disease or if it is provoked something we can reverse, would at least consider 3-6 months of anticoagulation. Depending on whether he has a difficult this time, may consider indefinite or could stop. Would also consider reevaluating ultrasound in 3 or 4 months prior to stopping to see if there is residual clot present. We will order some hypercoag at this time, the others will have to wait until he is either off anticoagulation or there is interruption. 2. Iron deficiency anemia, unclear etiology. Agree with plans for EGD and may consider colonoscopy, could consider IV iron to replace his oral iron, would cause melena and can be confusing. 3. History of hepatitis C. GI already has plans for checking hepatitis C and liver test. We will defer to them whether they think his is underlying liver disease or not ____ to see if any stigmata such as varices or gastropathy is present. 4. Possible liver disease. Defer to GI. 5. History of smoking, has not smoked for about 4 years. 6. We will follow with you. <ELECTRONICALLY SIGNED> By: Jan Crow MD 04/05/21 0731 [id number] Jan Crow MD /nt
[2021-04-05 08:30] VITALS: BP 138/64
[2021-04-05 11:07] LABS: HCV-RNA by PCR - EXPOSURE 1850000 IU/mL (())
[2021-04-05 12:00] VITALS: BP 117/71
[2021-04-05 16:30] VITALS: BP 124/68
[2021-04-05 16:45] VITALS: BP 115/77
[2021-04-05 19:51] VITALS: BP 115/69
[2021-04-06 00:54] LABS: HEMATOCRIT 35.6 % (42.0-52.0); HEMOGLOBIN 11.8 gm/dL (14.0-18.0); MCH 30.7 pg (26.0-34.0); MCHC 33.1 g/dL (28.0-37.0); MCV 92.6 fL (80.0-100.0); RBC 3.85 mil/uL (4.50-6.00); RDW 13.5 % (10.5-14.5)
--- NOTE | 2021-04-06 02:28 | NUR ---
PT IS ALERT AND ORIENTED X4. LUNGS ARE WHEZZY TO DIMINISHED. PT COMPLAINS OF ABDOMINAL PAIN. GETTING MORPHINE FOR PAIN BUT REPORTS NOT HELPING.UP AD SHARON IN THE HALLWAYS WALKING WITH HIS MASK ON. NURSE MAINTAINING HEPARIN DRIP PER PROTOCAL. ABDOMEN IS ROUND BOWEL SOUNDS ACTIVE. REPORTS HAVING 2 BM YESTERDAY. ONGOING NURSING CARE. CALL LIGHT WITHIN REACH IF NEEDS ASSISTANCE.
[2021-04-06 03:14] VITALS: BP 130/73
[2021-04-06 09:25] VITALS: BP 140/84
[2021-04-06 12:37] VITALS: BP 128/70
[2021-04-06 16:45] VITALS: BP 100/70
--- NOTE | 2021-04-06 18:11 | NUR ---
ASSUMED PATIENT CARE AT 0700. A/O X3. PAIN MED FOR ABD PAIN. UP D SHARON IN ROOM. NO BLEEDING NOTED ON HEPARIN GTT. SLOWLY TOWARDS POC GOALS.
[2021-04-06 19:39] VITALS: BP 112/75
[2021-04-07 03:45] VITALS: BP 117/75
[2021-04-07 05:13] LABS: HEMATOCRIT 36.4 % (42.0-52.0); HEMOGLOBIN 12.1 gm/dL (14.0-18.0); MCH 30.8 pg (26.0-34.0); MCHC 33.2 g/dL (28.0-37.0); RBC 3.91 mil/uL (4.50-6.00); RDW 13.3 % (10.5-14.5); WBC 7.2 thou/uL (4.0-11.0)
[2021-04-07 05:24] LABS: ALBUMIN 2.6 g/dL (3.4-5.0); DIRECT BILIRUBIN 0.2 mg/dL (<0.1-0.2); TOTAL BILIRUBIN 0.4 mg/dL (0.2-1.0); TOTAL PROTEIN 8.1 g/dL (6.4-8.2)
[2021-04-07 08:56] VITALS: BP 152/58
[2021-04-07 16:40] VITALS: BP 142/61
--- NOTE | 2021-04-07 18:32 | NUR ---
PATIENT MOVED FROM BED TO CHAIR A COUPLE TIMES THROUGHOUT THE SHIFT. PATIENT ALSO WALKED THE UNIT. ONLY COMPLAINT WAS PAIN THAT WAS TREATED WITH MEDICATION PARTIAL RELIEF. HEPARIN WAS STOPPED THIS AM AND CHANGED TO ORAL MEDICATION.
[2021-04-07 20:27] VITALS: BP 146/77
[2021-04-08 04:10] VITALS: BP 138/81
[2021-04-08 08:00] VITALS: BP 141/93
[2021-04-08] MEDS ORDERED: ELIQUIS5 MG PO (09:31)
[2021-04-08] MEDS ORDERED: NORCO7.5 PO (09:31)
[2021-04-08 10:52] VITALS: BP 141/93
[2021-04-09 15:10] LABS: HEPATITIS C VIRUS AB >11.0
--- NOTE | 2021-05-04 17:31 | H ---
[facility] [place] [place] [address] HISTORY AND PHYSICAL Name: JET MONTALVO Room #: 219-P [facility] IN .R.#: [id number] Admission: 04/01/21 Attend Phys: Leland Barrett MD, FAA Discharge: 04/08/21 Date of : 55 Report #: [id number] THIS REPORT FOR: cc: Leland Barrett MD [facility] Leland Barrett MD [facility] Leland Barrett MD [facility] ~ cc: Dex Bettencourt MD DATE OF SERVICE: 04/02/2021 CHIEF COMPLAINT: Abdominal pain; portal vein and superior mesenteric vein thrombosis. HISTORY OF PRESENT ILLNESS: The patient is a 65-year-old white male patient of mine who has had progressive abdominal pain, but really became significant on the day of admission. He recounts some discomfort that was transient and he thought associated with gas and stool changes over about 5 days. 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 He does have a history of hepatitis C, treated many years ago with interferon. He is admitted to the hospital and found to have heme-negative stool and heparinization was instituted. Dr. Dex Bettencourt, content development specialist, was consulted. PAST MEDICAL HISTORY: Left knee arthroscopy x2 in 2000 and 2001; right knee arthroscopy in 2005; back surgeries x2; hepatitis C, treated with interferon for 2 years in the ; skin cancers from ear and forehead; bronchoscopy in 2017; right thoracotomy with decortication for right-sided loculated pleural effusion with pneumothorax and empyema; EGD; colonoscopy; quit smoking in 2017; back fracture; fall with chest trauma 2016; right total knee arthroscopy in 2017; history of MRSA; left total knee arthroplasty in 2019. MEDICATIONS: Zithromax, Tessalon, guaifenesin, Norflex, prednisone, Lidoderm, albuterol. ALLERGIES: No known drug allergies. SOCIAL HISTORY: Smoked in the past, not for the last several years. FAMILY HISTORY: Noncontributory. REVIEW OF SYSTEMS: GENERAL: No fever, chills, nausea, vomiting, diarrhea. EYES: No visual changes. ENT: No problems with hearing, swallow, taste or smell. CARDIOVASCULAR: No chest pain or palpitations. RESPIRATORY: He does have chronic cough, mucus production and occasional [facility] [address] [place] [address] HISTORY AND PHYSICAL Name: JET MONTALVO Room #: 219-P [facility] IN ..#: [id number] Admission: 04/01/21 Attend Phys: Leland Barrett MD, FAAF Discharge: 04/08/21 Date of : 55 Report #: [id number] wheezing. GASTROINTESTINAL: Abdominal pain. A CT demonstrated portal vein and superior mesenteric vein thrombus. GENITOURINARY: No problems urinating. MUSCULOSKELETAL: Arthritis. NEUROLOGIC: No paresis, paralysis, paresthesias. PSYCHIATRIC: No dark thoughts. DERMATOLOGIC: No disturbing lesions or rash. Remainder of system review is negative. OBJECTIVE: VITAL SIGNS: Temperature 37.0, pulse 113, respirations 19, blood pressure 134/83, 97% O2 saturation on room air. GENERAL: He is jovial, no acute distress at the time of my exam. HEENT: Pupils equal, round, reactive to light and accommodation. Extraocular muscles intact. Pharynx unremarkable. NECK: Supple. COR: S1, S2. CHEST: He does have some rhonchus breath sounds in the right base. ABDOMEN: Globus, slightly distended, diffusely tender to light palpation. EXTREMITIES: No cyanosis, clubbing, or edema. NEUROLOGIC: He is intact without focal deficit. LABORATORY EVALUATION: CBC: White count is 10.6, hemoglobin 13.1, hematocrit 38.8, platelets 327,000. Serum chemistries: Sodium 134, potassium 4.1, chloride 102, carbon dioxide 21, anion gap 11, BUN 9, creatinine 1.0, estimated glomerular filtration rate 75, glucose 95, calcium is 8.8, total bilirubin 0.7, AST 45, ALT 54, alkaline phosphatase 161, total protein 8.4, albumin 3.0, lipase 130. Protime is 10.6, INR 0.97, APTT 26.2. Urinalysis was normal. CT scan of abdomen and pelvis with contrast 04/01/2021, portal vein thrombosis extending into the superior mesenteric vein, surrounding inflammation, few reactive lymph nodes, may indicate acute subacute status. Other chronic findings were noted. No free air or free fluid. ASSESSMENT: 1. Portal vein thrombus extensive superior mesenteric veins, abdominal pain, peritonitis. 2. Mild anemia. 3. Mildly elevated liver function tests. Hemoccult negative stool and coronavirus now test was negative. [address] [address] HISTORY AND PHYSICAL Name: JET MONTALVO Room #: 219-P [facility] IN M.R.#: [id number] Admission: 04/01/21 Attend Phys: Leland Barrett MD, MARCUS Discharge: 04/08/21 Date of : 55 Report #: [id number] PLAN: Admit to the hospital. A GI consult working. Heparinize. Follow closely. <ELECTRONICALLY SIGNED> By: Leland Barrett MD, MIGDALIA, MICHELLE 05/04/21 1731 [id number] Leland Barrett MD, MIGDALIA, FACEP /nt
== END 2021-04-08 11:52 | disposition home or self-care (01) | DRG 441 ==
LOC: ER 15:14 → 2N 21:02 → EROBS 21:02 → 2N 23:17
PROVIDERS: Emergency Medicine; Internal Medicine; Internal Medicine Hematology & Oncology; Nurse Practitioner; ADMIT Family Medicine; ATTEND Family Medicine
PROC: 0DJ08ZZ Inspection of Upper Intestinal Tract, Via Natural or Artificial Opening Endoscopic (ICD-10-PCS; principal; 2021-04-04)
DX: I81 Portal vein thrombosis (principal); K65.9 Peritonitis, unspecified; K55.059 Acute (reversible) ischemia of intestine, part and extent unspecified; E87.1 Hypo-osmolality and hyponatremia; K76.6 Portal hypertension; I85.00 Esophageal varices without bleeding; B19.20 Unspecified viral hepatitis C without hepatic coma; Z96.652 Presence of left artificial knee joint; D50.9 Iron deficiency anemia, unspecified; K31.89 Other diseases of stomach and duodenum; K31.819 Angiodysplasia of stomach and duodenum without bleeding; D69.6 Thrombocytopenia, unspecified; K59.00 Constipation, unspecified; Z20.822 Contact with and (suspected) exposure to COVID-19; F10.10 Alcohol abuse, uncomplicated; Z28.21 Immunization not carried out because of patient refusal
CPT/HCPCS: 10081; 62110; 62900; 70005

== ENCOUNTER 2021-04-22 10:25 | Emergency (ER) | payer OTHER ==
[~2021-04-22] VITALS: Ht 180.3 cm; Wt 100.7 kg
[~2021-04-22 10:25] MED LIST changes: +ELIQUIS5 MG PO; +NORCO7.5 PO
[2021-04-22 11:49] LABS: URINE BILIRUBIN NEGATIVE (Negative); URINE BLOOD NEGATIVE (Negative); URINE CLARITY CLEAR; URINE COLOR YELLOW; URINE GLUCOSE-RANDOM* NEGATIVE (Negative); URINE KETONES NEGATIVE (Negative); URINE LEUKOCYTES-REFLEX NEGATIVE (Negative); URINE NITRITE-REFLEX NEGATIVE (Negative); URINE PROTEIN (DIPSTICK) NEGATIVE (Negative)
[2021-04-22 12:34] LABS: ABSOLUTE NEUTROPHILS 3.2 thou/uL (1.4-8.2); BASOPHILS 0.2 % (0.0-2.0); EOSINOPHILS 5.1 % (0.0-3.0); HEMOGLOBIN 13.5 gm/dL (14.0-18.0); LYMPHOCYTES 42.9 % (24.0-44.0); MCH 30.7 pg (26.0-34.0); MCHC 33.8 g/dL (28.0-37.0); MONOCYTES 12.1 % (1.0-8.0); PLATELET COUNT 300 thou/uL (150-400); POLYS 39.7 % (36.0-66.0)
[2021-04-22 12:38] LABS: CALCIUM 9.1 mg/dL (8.5-10.1); CREATININE 0.9 mg/dL (0.7-1.3); POTASSIUM 3.8 mmol/L (3.5-5.1)
[2021-04-22 12:44] LABS: ALBUMIN 3.3 g/dL (3.4-5.0); TOTAL BILIRUBIN 0.6 mg/dL (0.2-1.0)
[2021-04-22 13:34] LABS: INR 0.96; PROTIME 10.5 Seconds (10.5-12.1)
[2021-04-22] MEDS ORDERED: PREDNISONE 20 M20 MG PO (13:50)
[2021-04-22] MEDS ORDERED: XARELTO20 MG PO (13:50)
[2021-04-22 13:56] VITALS: BP 128/95
== END 2021-04-22 13:56 | disposition home or self-care (01) ==
LOC: ER 10:25
PROVIDERS: Emergency Medicine
DX: L23.3 Allergic contact dermatitis due to drugs in contact with skin (principal); Z20.822 Contact with and (suspected) exposure to COVID-19; R21 Rash and other nonspecific skin eruption; B19.20 Unspecified viral hepatitis C without hepatic coma; F17.210 Nicotine dependence, cigarettes, uncomplicated; Z85.828 Personal history of other malignant neoplasm of skin; Z98.890 Other specified postprocedural states; Z79.51 Long term (current) use of inhaled steroids; Z79.899 Other long term (current) drug therapy; Z79.891 Long term (current) use of opiate analgesic; Z91.09 Other allergy status, other than to drugs and biological substances

== ENCOUNTER → 2021-06-08 | Outpatient (CLI) | payer OTHER ==
[~2021-06-08] MED LIST changes: +XARELTO20 MG PO
[2021-06-08 09:23] LABS: ABSOLUTE NEUTROPHILS 3.2 thou/uL (1.4-8.2); BASOPHILS 1.5 % (0.0-2.0); EOSINOPHILS 6.5 % (0.0-3.0); HEMATOCRIT 41.4 % (42.0-52.0); HEMOGLOBIN 13.8 gm/dL (14.0-18.0); LYMPHOCYTES 38.2 % (24.0-44.0); MCH 30.1 pg (26.0-34.0); MCHC 33.4 g/dL (28.0-37.0); MCV 90.1 fL (80.0-100.0); MONOCYTES 12.3 % (1.0-8.0); PLATELET COUNT 292 thou/uL (150-400); POLYS 41.5 % (36.0-66.0); RBC 4.59 mil/uL (4.50-6.00); RDW 14.7 % (10.5-14.5); WBC 7.8 thou/uL (4.0-11.0)
[2021-06-08 09:35] LABS: % SATURATION 14 % (20-39); IRON 49 ug/dL (65-175); TIBC 340 ug/dL (250-450)
[2021-06-08 09:38] LABS: ALBUMIN 3.1 g/dL (3.4-5.0); DIRECT BILIRUBIN 0.2 mg/dL (<0.1-0.2); TOTAL BILIRUBIN 0.4 mg/dL (0.2-1.0); TOTAL PROTEIN 8.6 g/dL (6.4-8.2)
== END ==
LOC: LAB 08:37
PROVIDERS: ATTEND Family Medicine
DX: B18.1 Chronic viral hepatitis B without delta-agent (principal); D50.9 Iron deficiency anemia, unspecified